=== PATIENT | female | born 1945 | race Caucasian/White ===

== ENCOUNTER 2020-10-23 09:40 | Inpatient (IN) ==
[2020-10-23] MEDS ORDERED: Morphine 4 MG/ML VIAL (1 ml) IV ONE (10:29)
[2020-10-23 11:21] LABS: ABS Basophils 0.1 10^3/ul (0-0.2); ABS Lymphocytes 1.3 10^3/ul (1.0-4.8); ABS Monocytes 0.3 10^3/ul (0-0.8); ABS Neutrophils 8.8 10^3/ul (1.5-7.7); Eosinophil % 0.4 %; Hematocrit 38 % (35-47); Hemoglobin 12.9 g/dL (12.0-16.0); Lymphocyte % 12.5 %; Mean Corpuscular HGB Conc 34 g/dL (31-36); Mean Corpuscular Hemoglobin 30 pg (27-31); Mean Corpuscular Volume 89 fL (80-97); Mean Platelet Volume 9.5 fL (7.4-10.4); Platelet Count 173 10^3/uL (150-450); Red Blood Count 4.26 10^6 /uL (3.70-4.87); Red Cell Distribution Width 13 % (10-15); White Blood Count 10.5 10^3/uL (3.5-10.8)
[2020-10-23] MEDS ORDERED: NS 0.9% 1000 ml BAG 1,000 ML IV ONE (11:24)
[2020-10-23 11:31] LABS: INR 1.1 (0.86-1.15)
[2020-10-23 11:40] LABS: Albumin 4.1 g/dL (3.2-5.2); Calcium 8.7 mg/dL (8.6-10.3); Potassium 3.5 mmol/L (3.5-5.0); Total Bilirubin 0.8 mg/dL (0.2-1.0)
[2020-10-23 11:46] LABS: Albumin/Globulin Ratio 1.5 (1-3); EGFR African American 86.3 (>60); EGFR Non-African American 71.3 (>60); Globulin 2.7 g/dL (2-4); Total Protein 6.8 g/dL (6.4-8.9)
[2020-10-23] MEDS ORDERED: Lorazepam PYXIS KEY PRN (12:23)
[2020-10-23] MEDS ORDERED: LORazepam 2 mg VIAL 1 ml IV PUSH ONE (12:23)
[2020-10-23] MEDS ORDERED: Morphine 2 MG/ML SYRINGE IV ONE (12:23)
[2020-10-23] MEDS: oxyCODONE/Acetamin 5/325 mg TAB PO PRN ×2 (12:48→19:44)
[2020-10-23] MEDS ORDERED: Enoxaparin 40 MG/0.4 ML SYR SUBCUT SCH (13:00)
[2020-10-23] MEDS: Morphine 2 MG/ML SYRINGE IV PRN ×3 (15:34→22:53)
[2020-10-23] MEDS: Ondansetron 4 mg VIAL 2 MG/ML 2 ml VIAL IV PRN (15:54)
[2020-10-23] MEDS: Polyethylene Glycol 3350 17 GM PACKET PO SCH (18:02)
[2020-10-24] MEDS: Morphine 2 MG/ML SYRINGE IV PRN ×5 (00:55→13:02)
[2020-10-24] MEDS: Lactated Ringers 1000 ml BAG 1,000 ML IV SCH ×2 (05:55→21:38)
[2020-10-24] MEDS ORDERED: Buffered Lidocaine 1% SYRIN 1 ml INTRADERM ONE (06:00)
[2020-10-24 06:51] LABS: ABS Eosinophils 0.1 10^3/ul (0-0.6); ABS Monocytes 0.4 10^3/ul (0-0.8); ABS Neutrophils 6.8 10^3/ul (1.5-7.7); Eosinophil % 0.6 %; Hematocrit 33 % (35-47); Hemoglobin 11.4 g/dL (12.0-16.0); Lymphocyte % 21.6 %; Mean Corpuscular HGB Conc 34 g/dL (31-36); Mean Corpuscular Hemoglobin 31 pg (27-31); Mean Corpuscular Volume 91 fL (80-97); Mean Platelet Volume 9.7 fL (7.4-10.4); Platelet Count 132 10^3/uL (150-450); Red Blood Count 3.69 10^6 /uL (3.70-4.87); Red Cell Distribution Width 13 % (10-15); White Blood Count 9.3 10^3/uL (3.5-10.8)
[2020-10-24 07:05] LABS: INR 1.16 (0.86-1.15)
[2020-10-24 07:13] LABS: Calcium 8.1 mg/dL (8.6-10.3); EGFR African American 100.9 (>60); EGFR Non-African American 83.4 (>60); Potassium 3.8 mmol/L (3.5-5.0)
[2020-10-24] MEDS: Polyethylene Glycol 3350 17 GM PACKET PO SCH (07:44)
[2020-10-24] MEDS: Ondansetron 4 mg VIAL 2 MG/ML 2 ml VIAL IV PRN (09:13)
[2020-10-24] MEDS ORDERED: Morphine 2 MG/ML SYRINGE IV PRN (10:38)
[2020-10-24] MEDS ORDERED: Dexamethasone IV 4 MG/ML VIAL 1 ml VIAL ONE ×2 (14:37→16:54)
[2020-10-24] MEDS ORDERED: Propofol 10 MG/ML 20 ML BTL ONE (14:37)
[2020-10-24] MEDS ORDERED: Ondansetron 4 mg VIAL 2 MG/ML 2 ml VIAL ONE (14:37)
[2020-10-24] MEDS ORDERED: Rocuronium 50 mg VIAL 10 mg/ml 5 ml VIAL (50 mg) ONE (14:37)
[2020-10-24] MEDS ORDERED: fentaNYL 250 mcg/5 ml 50 MCG/ML 5 ml VIAL (250 MCG) ONE (14:37)
[2020-10-24] MEDS ORDERED: Lidocaine 2% PF 5 ML VIAL ONE (14:37)
[2020-10-24] MEDS ORDERED: Midazolam 2 mg/2 ml VIAL 1 mg/ml 2 ml VIAL (2 mg) ONE (14:37)
[2020-10-24] MEDS ORDERED: Clindamycin 900 MG/D5W BAG 900 MG/50 ML BAG IVPB ONE (15:13)
[2020-10-24] MEDS ORDERED: Vancomycin 1000 MG in NS 0.9% 250 ML IVPB ONE (16:00)
[2020-10-24] MEDS ORDERED: Acetaminophen IV 1 GM/100ML 100 ML IV ONE (16:00)
[2020-10-24] MEDS ORDERED: ROPIVACAINE 5 MG/ML 30 ML BTL (0.5%) ONE (16:08)
[2020-10-24] MEDS ORDERED: Naloxone 0.4 mg VIAL 0.4 mg/ml 1 ml VIAL IV PRN (17:26)
[2020-10-24] MEDS ORDERED: DiMENhydriNATE IV 50 mg/ml 1 ml VIAL IV PUSH PRN (17:26)
[2020-10-24] MEDS ORDERED: diPHENhydraMINE IV 50 MG/ML 1 ml VIAL (BENADRYL) IV PRN (17:26)
[2020-10-24] MEDS ORDERED: Phenylephrine 40 mcg/mL 10mL (400mcg) SYRINGE ONE (17:55)
[2020-10-24] MEDS ORDERED: diPHENhydraMINE IV 50 MG/ML 1 ml VIAL (BENADRYL) ONE (18:37)
[2020-10-24] MEDS ORDERED: HYDROmorphone 1 MG/1 ML SYRINGE ONE (19:44)
[2020-10-24] MEDS: HYDROmorphone 1 MG/1 ML SYRINGE IV PRN ×2 (19:45→20:01)
[2020-10-24] MEDS: oxyCODONE/Acetamin 5/325 mg TAB PO PRN (23:06)
[2020-10-25] MEDS: Clindamycin 600 MG/D5W BAG IV SCH ×3 (00:38→16:32)
[2020-10-25] MEDS: oxyCODONE/Acetamin 5/325 mg TAB PO PRN ×4 (04:16→22:25)
[2020-10-25 04:55] LABS: ABS Lymphocytes 0.5 10^3/ul (1.0-4.8); ABS Monocytes 0.4 10^3/ul (0-0.8); ABS Neutrophils 10.2 10^3/ul (1.5-7.7); Hematocrit 33 % (35-47); Hemoglobin 10.8 g/dL (12.0-16.0); Lymphocyte % 4.5 %; Mean Corpuscular HGB Conc 33 g/dL (31-36); Mean Corpuscular Hemoglobin 30 pg (27-31); Mean Corpuscular Volume 91 fL (80-97); Mean Platelet Volume 9.7 fL (7.4-10.4); Platelet Count 127 10^3/uL (150-450); Red Blood Count 3.62 10^6 /uL (3.70-4.87); Red Cell Distribution Width 13 % (10-15); White Blood Count 11.1 10^3/uL (3.5-10.8)
[2020-10-25 05:15] LABS: Calcium 8.4 mg/dL (8.6-10.3); EGFR African American 100.9 (>60); EGFR Non-African American 83.4 (>60); Potassium 4.4 mmol/L (3.5-5.0)
[2020-10-25] MEDS: Polyethylene Glycol 3350 17 GM PACKET PO SCH (09:06)
[2020-10-25] MEDS ORDERED: Magnesium Hydroxide LIQ 30 ML UDC PO PRN (09:16)
[2020-10-25] MEDS: CARBOXYMETHYLCELLULOSE LUBRICANT EYE BOTH EYES PRN (22:09)
[2020-10-25] MEDS: GLYCERI BOTH EYES PRN (22:09)
[2020-10-26] MEDS: Polyethylene Glycol 3350 17 GM PACKET PO SCH (08:36)
[2020-10-26] MEDS: oxyCODONE/Acetamin 5/325 mg TAB PO PRN ×4 (08:37→22:52)
[2020-10-26] MEDS: GLYCERI BOTH EYES PRN (22:53)
[2020-10-26] MEDS: CARBOXYMETHYLCELLULOSE LUBRICANT EYE BOTH EYES PRN (22:53)
[2020-10-26] MEDS: ASCORBIC ACID 250 MG PO SCH (22:54)
[2020-10-26] MEDS: [UNRECOGNIZED DRUG - OTHER] OPHTHALMIC PRN (22:55)
[2020-10-26] MEDS: [UNRECOGNIZED DRUG - OTHER] PO SCH (22:55)
[2020-10-27] MEDS: Polyethylene Glycol 3350 17 GM PACKET PO SCH (08:32)
[2020-10-27] MEDS: ASCORBIC ACID 250 MG PO SCH (08:32)
[2020-10-27] MEDS: oxyCODONE/Acetamin 5/325 mg TAB PO PRN ×3 (08:32→20:31)
[2020-10-27] MEDS: [UNRECOGNIZED DRUG - OTHER] PO SCH (08:32)
[2020-10-27 10:11] LABS: ABS Basophils 0.1 10^3/ul (0-0.2); ABS Eosinophils 0.1 10^3/ul (0-0.6); ABS Lymphocytes 1.3 10^3/ul (1.0-4.8); ABS Monocytes 0.4 10^3/ul (0-0.8); ABS Neutrophils 6.2 10^3/ul (1.5-7.7); Eosinophil % 1.6 %; Hematocrit 27 % (35-47); Hemoglobin 9.2 g/dL (12.0-16.0); Lymphocyte % 16.3 %; Mean Corpuscular HGB Conc 34 g/dL (31-36); Mean Corpuscular Hemoglobin 31 pg (27-31); Mean Corpuscular Volume 90 fL (80-97); Platelet Count 174 10^3/uL (150-450); Red Blood Count 3.02 10^6 /uL (3.70-4.87); Red Cell Distribution Width 13 % (10-15); White Blood Count 8.2 10^3/uL (3.5-10.8)
[2020-10-28] MEDS: oxyCODONE/Acetamin 5/325 mg TAB PO PRN ×5 (00:27→22:02)
[2020-10-28 05:43] LABS: Hematocrit 26 % (35-47); Hemoglobin 8.9 g/dL (12.0-16.0)
[2020-10-28] MEDS: Polyethylene Glycol 3350 17 GM PACKET PO SCH (08:35)
[2020-10-28] MEDS: [UNRECOGNIZED DRUG - OTHER] PO SCH (08:35)
[2020-10-28] MEDS: ASCORBIC ACID 250 MG PO SCH (08:35)
[2020-10-28] MEDS: [UNRECOGNIZED DRUG - OTHER] OPHTHALMIC PRN (18:27)
[2020-10-28] MEDS: CARBOXYMETHYLCELLULOSE LUBRICANT EYE BOTH EYES PRN (18:28)
[2020-10-28] MEDS: GLYCERI BOTH EYES PRN (18:28)
[2020-10-28 21:19] LABS: ABS Basophils 0.1 10^3/ul (0-0.2); ABS Eosinophils 0.2 10^3/ul (0-0.6); ABS Lymphocytes 1.9 10^3/ul (1.0-4.8); ABS Monocytes 0.5 10^3/ul (0-0.8); ABS Neutrophils 5.5 10^3/ul (1.5-7.7); Eosinophil % 1.9 %; Hematocrit 27 % (35-47); Lymphocyte % 23.8 %; Mean Corpuscular HGB Conc 34 g/dL (31-36); Mean Corpuscular Hemoglobin 31 pg (27-31); Mean Corpuscular Volume 90 fL (80-97); Platelet Count 225 10^3/uL (150-450); Red Blood Count 2.96 10^6 /uL (3.70-4.87); Red Cell Distribution Width 13 % (10-15); White Blood Count 8.1 10^3/uL (3.5-10.8)
[2020-10-29] MEDS: [UNRECOGNIZED DRUG - OTHER] OPHTHALMIC PRN (01:41)
[2020-10-29] MEDS: CARBOXYMETHYLCELLULOSE LUBRICANT EYE BOTH EYES PRN (01:41)
[2020-10-29] MEDS: GLYCERI BOTH EYES PRN (01:41)
[2020-10-29] MEDS: oxyCODONE/Acetamin 5/325 mg TAB PO PRN ×4 (06:07→22:57)
[2020-10-29 06:47] LABS: ABS Basophils 0.1 10^3/ul (0-0.2); ABS Eosinophils 0.2 10^3/ul (0-0.6); ABS Lymphocytes 2.2 10^3/ul (1.0-4.8); ABS Monocytes 0.5 10^3/ul (0-0.8); ABS Neutrophils 5.9 10^3/ul (1.5-7.7); Eosinophil % 2.2 %; Hematocrit 28 % (35-47); Hemoglobin 9.9 g/dL (12.0-16.0); Lymphocyte % 25.3 %; Mean Corpuscular HGB Conc 35 g/dL (31-36); Mean Corpuscular Hemoglobin 31 pg (27-31); Mean Corpuscular Volume 89 fL (80-97); Mean Platelet Volume 8.9 fL (7.4-10.4); Platelet Count 267 10^3/uL (150-450); Red Blood Count 3.19 10^6 /uL (3.70-4.87); Red Cell Distribution Width 14 % (10-15); White Blood Count 8.9 10^3/uL (3.5-10.8)
[2020-10-29] MEDS: [UNRECOGNIZED DRUG - OTHER] PO SCH (09:20)
[2020-10-29] MEDS: ASCORBIC ACID 250 MG PO SCH (09:20)
[2020-10-29] MEDS: Polyethylene Glycol 3350 17 GM PACKET PO SCH (09:20)
[2020-10-29] MEDS: Ondansetron 4 mg VIAL 2 MG/ML 2 ml VIAL IV PRN (15:52)
[2020-10-29] MEDS ORDERED: Metoprolol Tartrate 5 mg VIAL 5 ml VIAL (1 mg/ml) IV ONE ×2 (16:34→17:22)
[2020-10-29] MEDS ORDERED: NS 0.9% 1000 ml BAG 1,000 ML IV ONE (16:50)
[2020-10-30 06:56] LABS: Hematocrit 26 % (35-47); Mean Corpuscular HGB Conc 34 g/dL (31-36); Mean Corpuscular Hemoglobin 31 pg (27-31); Mean Corpuscular Volume 90 fL (80-97); Mean Platelet Volume 8.7 fL (7.4-10.4); Platelet Count 277 10^3/uL (150-450); Red Blood Count 2.93 10^6 /uL (3.70-4.87); Red Cell Distribution Width 13 % (10-15); White Blood Count 8.1 10^3/uL (3.5-10.8)
[2020-10-30 06:59] LABS: Calcium 8.5 mg/dL (8.6-10.3); EGFR African American 93.1 (>60); EGFR Non-African American 76.9 (>60); Magnesium 2.1 mg/dL (1.9-2.7); Potassium 4.1 mmol/L (3.5-5.0)
[2020-10-30] MEDS: oxyCODONE/Acetamin 5/325 mg TAB PO PRN (10:18)
[2020-10-30] MEDS: [UNRECOGNIZED DRUG - OTHER] PO SCH (10:19)
[2020-10-30] MEDS: ASCORBIC ACID 250 MG PO SCH (10:19)
[2020-10-30] MEDS: Polyethylene Glycol 3350 17 GM PACKET PO SCH (10:47)
[2020-10-30 11:51] VITALS: BP 117/59
== END 2020-10-30 13:35 | disposition home or self-care (01) | DRG 522 ==
LOC: ED 09:40 → SSU 12:24 → SUATTDRO 12:24 → SSU 15:18
PROVIDERS: ADMIT Hospitalist; ATTEND Orthopaedic Surgery Adult Reconstructive Orthopaedic Surgery